=== PATIENT | male | born 1955 | race Two or more races ===

== ENCOUNTER 2023-08-11 10:50 | Outpatient (CLI) | payer OTHER | END 2023-08-11 11:00 | disposition home or self-care (01) | LOC: SONOGRAMA 10:50 | PROVIDERS: ATTEND Pathology Anatomic Pathology & Clinical Pathology | DX: D44.0 Neoplasm of uncertain behavior of thyroid gland (principal); E04.1 Nontoxic single thyroid nodule ==

== ENCOUNTER 2023-12-27 16:23 | Outpatient (CLI) | payer OTHER | END 2023-12-27 16:27 | disposition home or self-care (01) | LOC: LAB 16:23 | PROVIDERS: ATTEND Urology | DX: R97.20 Elevated prostate specific antigen [PSA] (principal) ==

== ENCOUNTER 2024-01-24 07:41 | Outpatient (CLI) | payer OTHER | END 2024-01-24 07:47 | disposition home or self-care (01) | LOC: SONOGRAMA 07:41 | PROVIDERS: ATTEND Urology | DX: N40.1 Benign prostatic hyperplasia with lower urinary tract symptoms (principal); R97.20 Elevated prostate specific antigen [PSA] ==